=== PATIENT | female | born 1995 | race Caucasian/White ===

== ENCOUNTER 2016-05-21 19:56 | Emergency (ER) | payer OTHER ==
--- NOTE | 2016-05-21 22:12 | UC ---
Throat Pain/Nasal Erlin HPI - HPI Summary HPI Summary: Pt states she has been exposed to mono, by sharing drinks. Denies ST, fever, abd pain at this time. 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 Hx enlarged tonsils, especially her right tonsil. - History of Current Complaint Chief Complaint: UCGeneralIllness Stated Complaint: MONO TEST Time Seen by Provider: 05/21/16 21:40 Hx Obtained From: Patient Hx Last Menstrual Period: 05/11/16 Onset/Duration: Sudden Onset, Lasting Weeks - exposed one week ago, Still Present Severity: Mild Pain Intensity: 0 Pain Scale Used: 0-10 Numeric Cough: None Associated Signs & Symptoms: Negative: Dysphagia, Hoarseness, Nasal Discharge, Fever, Vomiting - Epiglottits Risk Factors Epiglottis Risk Factors: Negative - Allergies/Home Medications Allergies/Adverse Reactions: Allergies Allergy/AdvReac Type Severity Reaction Status Date / Time No Known Allergies Allergy Verified 05/21/16 21:41 Home Medications: Home Medications NK [No Home Medications Reported] 05/21/16 [History Confirmed 05/21/16] PMH/Surg Hx/FS Hx/Imm Hx Previously Healthy: Yes - Surgical History Surgical History: Yes Surgery Procedure, Year, and Place: for scoliosis-has jamie - Family History Known Family History: Positive: Diabetes - great grandmother, maternal - Social History Occupation: Student Alcohol Use: None Substance Use Type: None Smoking Status (MU): Never Smoked Tobacco - Immunization History Most Recent Influenza Vaccination: none Review of Systems Constitutional: Negative Skin: Negative ENT: Negative Respiratory: Negative Cardiovascular: Negative Gastrointestinal: Negative Genitourinary: Negative Musculoskeletal: Negative Neurological: Negative All Other Systems Reviewed And Are Negative: Yes Physical Exam Triage Information Reviewed: Yes Appearance: Well-Appearing, No Pain Distress, Well-Nourished Vital Signs: Initial Vital Signs Temp 98.5 F 05/21/16 21:37 Pulse 71 05/21/16 21:37 Resp 15 05/21/16 21:37 BP 117/75 05/21/16 21:37 Pulse Ox 98 05/21/16 21:37 Vital Signs Reviewed: Yes Eyes: Positive: Conjunctiva Clear ENT: Positive: Hearing grossly normal, TMs normal, Tonsillar swelling. Negative : Tonsillar exudate, Muffled/hoarse voice Neck: Positive: Supple, Nontender, No Lymphadenopathy Respiratory: Positive: Lungs clear, Normal breath sounds, No respiratory distress Cardiovascular: Positive: RRR, No Murmur, Pulses Normal, Brisk Capillary Refill Abdomen Description: Positive: Nontender, No Organomegaly, Soft. Negative: CVA Tenderness (R), CVA Tenderness (L), Distended, Guarding, Hepatomegaly, McBurney' s Point Tenderness, Peritoneal Signs, Pulsatile Mass, Splenomegaly Bowel Sounds: Positive: Present Musculoskeletal: Positive: Strength Intact, ROM Intact Neurological: Positive: Alert, Muscle Tone Normal Psychological Exam: Normal Skin Exam: Normal Throat Pain/Nasal Course/Dx - Differential Dx/Diagnosis Differential Diagnosis/HQI/PQRI: Influenza, Otitis Media, Pharyngitis, Tonsillitis, URI, Other - mono Provider Diagnoses: evaluation for mononucleosis Discharge - Discharge Plan Condition: Stable Disposition: HOME Patient Education Materials: Mononucleosis (ED) Additional Instructions: Follow up with your doctor at home in 2 days as needed. You may call for your mono results in 2 days if you have not heard from us. Return to urgent care if any new or worsening symptoms.
[2016-05-22 10:26] LABS: EBV Response YES
[2016-05-22 10:34] LABS: Hematocrit 42 % (35-47); Hemoglobin 13.9 g/dl (12.0-16.0); Mean Corpuscular HGB Conc 33 g/dl (31-36); Mean Corpuscular Hemoglobin 27 pg (27-31); Mean Corpuscular Volume 83 fL (80-97); Mean Platelet Volume 9 um3 (7.4-10.4); Red Cell Distribution Width 13 % (10.5-15); White Blood Count 7.4 10^3/ul (3.5-10.8)
[2016-05-22 10:59] LABS: Manual Entry Verification GRE0060; Mono Internal Control QC Line Present
[2016-05-23 12:33] LABS: EBV Capsid Ag IgG Ab Positive (Negative); EBV Capsid Ag IgM Ab Negative (Negative)
== END 2016-05-21 22:50 | disposition home or self-care (01) ==
LOC: UCCORT 19:56
DX: Z20.828 Contact with and (suspected) exposure to other viral communicable diseases (principal)
CPT/HCPCS: 36415; 85025; 86308; 86664; 86665; 99201; G0463

== ENCOUNTER 2017-03-11 09:31 | Emergency (ER) | payer OTHER ==
[2017-03-11 11:27] VITALS: BP 125/66
--- NOTE | 2017-03-11 11:42 | UC ---
Respiratory Complaint HPI - HPI Summary HPI Summary: sniffles and cough feels like a she has a cold coming on--- - History of Current Complaint Chief Complaint: UCGeneralIllness Stated Complaint: ST, CRISTIANO. Time Seen by Provider: 03/11/17 11:33 Hx Obtained From: Patient Hx Last Menstrual Period: 02/09/17 ?: No Onset/Duration: Sudden Onset, Lasting Days, Still Present Timing: Constant Severity Initially: Mild Severity Currently: Mild Character: Cough: Nonproductive Aggravating Factors: Nothing Alleviating Factors: Nothing Associated Signs And Symptoms: Positive: URI, Nasal Congestion - Allergies/Home Medications Allergies/Adverse Reactions: Allergies Allergy/AdvReac Type Severity Reaction Status Date / Time No Known Allergies Allergy Verified 03/11/17 11:28 Home Medications: Home Medications Fluticasone Propionate Hfa [Flovent Hfa] 03/11/17 [History] PMH/Surg Hx/FS Hx/Imm Hx Previously Healthy: Yes - Surgical History Surgical History: Yes Surgery Procedure, Year, and Place: for scoliosis-has jamie - Family History Known Family History: Positive: Diabetes - great grandmother, maternal - Social History Occupation: Employed Full-time Lives: With Family Alcohol Use: None Substance Use Type: None Smoking Status (MU): Never Smoked Tobacco - Immunization History Most Recent Influenza Vaccination: not current Review of Systems Constitutional: Negative Skin: Negative Eyes: Negative ENT: Negative, Nasal Discharge Respiratory: Negative Cardiovascular: Negative Gastrointestinal: Negative Genitourinary: Negative Motor: Negative Neurovascular: Negative Musculoskeletal: Negative Neurological: Negative Psychological: Negative Is Patient Immunocompromised?: No All Other Systems Reviewed And Are Negative: Yes Physical Exam Triage Information Reviewed: Yes Appearance: Well-Appearing, No Pain Distress, Well-Nourished Vital Signs: Initial Vital Signs Temp 98.9 F 03/11/17 11:24 Pulse 84 03/11/17 11:24 Resp 20 03/11/17 11:24 BP 125/66 03/11/17 11:24 Pulse Ox 100 03/11/17 11:24 Vital Signs Reviewed: Yes Eye Exam: Normal Eyes: Positive: Conjunctiva Clear ENT Exam: Normal ENT: Positive: Normal ENT inspection, Hearing grossly normal, Pharynx normal, Nasal congestion, Nasal drainage, Uvula midline. Negative: TMs normal, TM bulging, TM dull, TM red, Tonsillar swelling, Tonsillar exudate, Trismus, Muffled voice, Hoarse voice, Dental tenderness, Sinus tenderness Dental Exam: Normal Neck exam: Normal Neck: Positive: Supple, Nontender, No Lymphadenopathy Respiratory Exam: Normal Respiratory: Positive: Chest non-tender, Lungs clear, Normal breath sounds, No respiratory distress, No accessory muscle use Cardiovascular Exam: Normal Cardiovascular: Positive: RRR, No Murmur, Pulses Normal, Brisk Capillary Refill Abdominal Exam: Normal Abdomen Description: Positive: Nontender, No Organomegaly, Soft. Negative: CVA Tenderness (R), CVA Tenderness (L) Bowel Sounds: Positive: Present Musculoskeletal Exam: Normal Musculoskeletal: Positive: Strength Intact, ROM Intact, No Edema Neurological Exam: Normal Neurological: Positive: Alert, Muscle Tone Normal Psychological Exam: Normal Psychological: Positive: Normal Response To Family, Age Appropriate Behavior Skin Exam: Normal Skin: Positive: rashes UC Diagnostic Evaluation - Laboratory O2 Sat by Pulse Oximetry: 100 Diagnostic Studies Comment: influenza A/B (-) Respiratory Course/Dx - Course Course Of Treatment: increase fluids, otc medications for symptom relief, Flonase for nasal congestion and drainage - Differential Dx/Diagnosis Provider Diagnoses: Viral illness, nasal congestion Discharge - Discharge Plan Condition: Stable Disposition: HOME Prescriptions: Fluticasone NASAL SPRAY 50MCG* [Flonase NASAL SPRAY 50MCG*] 2 spray BOTH NARES DAILY #1 btl Patient Education Materials: Viral Syndrome (ED), Cold Symptoms (ED), How to Use Nasal [place] (ED) Referrals: Hiren Jack MD [Primary Care Provider] - If Needed
== END 2017-03-11 12:12 | disposition home or self-care (01) ==
LOC: UCCORT 09:31
DX: B34.9 Viral infection, unspecified (principal); R09.81 Nasal congestion
CPT/HCPCS: 87651; 99212; G0463

== ENCOUNTER 2017-05-30 15:55 | Emergency (ER) | payer OTHER ==
[2017-05-30 16:30] VITALS: BP 126/88
--- NOTE | 2017-05-30 16:38 | UC ---
Respiratory Complaint HPI - HPI Summary HPI Summary: 21 year old female with cough Productive cough w/ green phelgm and wheezing x1 month. SOB w/ activity and w/ coughing fits. Using albuterol and flovent inhaler daily w/ not much relief. Denies fever/chills. Hx asthma. No SOB. No fever. Has been using BARBIE more frequently. Advised by family with her cough to come in. [ End ] - History of Current Complaint Chief Complaint: UCRespiratory Stated Complaint: PERSISTENT COUGH Time Seen by Provider: 05/30/17 16:35 Hx Obtained From: Patient Hx Last Menstrual Period: 05/21/17 Onset/Duration: Gradual Onset Timing: Constant Severity Initially: Mild Severity Currently: Moderate Pain Intensity: 0 Character: Cough: Productive Aggravating Factors: Allergens, Exertion Alleviating Factors: Bronchodilator Associated Signs And Symptoms: Positive: Nasal Congestion - Allergies/Home Medications Allergies/Adverse Reactions: Allergies Allergy/AdvReac Type Severity Reaction Status Date / Time No Known Allergies Allergy Verified 05/30/17 16:24 Home Medications: Home Medications Albuterol HFA INHALER* [Ventolin HFA Inhaler*] 1 puff Q4HR PRN 05/30/17 [ History Confirmed 05/30/17] PMH/Surg Hx/FS Hx/Imm Hx Previously Healthy: Yes Respiratory History: Asthma - Surgical History Surgical History: Yes Surgery Procedure, Year, and Place: for scoliosis-has jamie - Family History Known Family History: Positive: Diabetes - great grandmother, maternal - Social History Occupation: Employed Full-time - TA / local delivery driver Lives: With Family Alcohol Use: Occasionally Substance Use Type: None Smoking Status (MU): Never Smoked Tobacco - Immunization History Most Recent Influenza Vaccination: not current Review of Systems Constitutional: Fatigue ENT: Nasal Discharge Respiratory: Shortness Of Breath, Cough Is Patient Immunocompromised?: No All Other Systems Reviewed And Are Negative: Yes Physical Exam Triage Information Reviewed: Yes Appearance: Well-Appearing, No Pain Distress, Well-Nourished Vital Signs: Initial Vital Signs Temp 97.9 F 05/30/17 16:25 Pulse 70 05/30/17 16:25 Resp 16 05/30/17 16:25 BP 126/88 05/30/17 16:25 Pulse Ox 100 05/30/17 16:25 Vital Signs Reviewed: Yes Eye Exam: Normal ENT Exam: Normal Dental Exam: Normal Neck exam: Normal Neck: Positive: 1 Respiratory Exam: Normal Respiratory: Positive: Chest non-tender, Lungs clear, Normal breath sounds, No respiratory distress Cardiovascular Exam: Normal Abdominal Exam: Normal Musculoskeletal Exam: Normal Neurological Exam: Normal Psychological Exam: Normal Skin Exam: Normal UC Diagnostic Evaluation - Laboratory O2 Sat by Pulse Oximetry: 100 Respiratory Course/Dx - Course Course Of Treatment: No acute concerns. Sx essentially stable and same for weeks. Start singulair at this time and if Sx worsen then start antibiotics. No acute concern for steroids as no wheeze and per patient does not feel that symptomatic and not been on steroids in years,. - Differential Dx/Diagnosis Differential Diagnosis/HQI/PQRI: Asthma, Bronchitis, Lower Resp Infection, Sinusitis Provider Diagnoses: Asthmatic bronchitis Discharge - Sign-Out/Discharge Documenting (check all that apply): Discharge - Discharge Plan Condition: Good Disposition: HOME Prescriptions: Amoxicillin/Clavulanate TAB* [Augmentin TAB 875*] 875 mg PO BID 10 Days #20 tab Benzonatate CAP* [Tessalon 100 MG CAP*] 100 mg PO TID PRN #20 cap PRN Reason: Cough Montelukast Sodium TAB* [Singulair TAB*] 10 mg PO BEDTIME #30 tab Patient Education Materials: Acute Bronchitis (ED) Referrals: Hiren Jack MD [Primary Care Provider] - 4 Days Additional Instructions: As we discussed try supportive treatment at this time for a few days and if your symptoms worsen, you develop fever or concern for worsening cough then start the antibiotics. - Billing Disposition and Condition Condition: GOOD Disposition: HOME
== END 2017-05-30 17:02 | disposition home or self-care (01) ==
LOC: UCCORT 15:55
DX: J45.909 Unspecified asthma, uncomplicated (principal)
CPT/HCPCS: 99212; G0463

== ENCOUNTER 2017-06-29 07:22 | Emergency (ER) | payer OTHER ==
[2017-06-29 07:47] VITALS: BP 114/78
--- NOTE | 2017-06-29 08:10 | UC ---
Eye Complaint HPI - HPI Summary HPI Summary: Per lotteries agent "Pt woke yesterday with R eye red, puritic and crusted shut. Pt states this is her 3rd occurance of conjunctivitis. She admits to using the same make up products since the 1st occurance but states she will discard it now. " -here w. her fiance Isaak. She also c/o a lot of nasal congestion mucous production. no sinus tenderess. has had a cold recently. 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 -she would like abx gtts. -she knows she needs to change her make up. no contacts. -no trauma, no pain. no signfiicant visual change other than blurriness and irritation. - History of Current Complaint Chief Complaint: UCEye Stated Complaint: EYE COMPLAINT Time Seen by Provider: 06/29/17 07:54 Hx Last Menstrual Period: 06/20/17 Pain Intensity: 0 - Allergies/Home Medications Allergies/Adverse Reactions: Allergies Allergy/AdvReac Type Severity Reaction Status Date / Time No Known Allergies Allergy Verified 06/29/17 07:46 PMH/Surg Hx/FS Hx/Imm Hx Previously Healthy: Yes - Surgical History Surgical History: Yes Surgery Procedure, Year, and Place: for scoliosis-has jamie - Family History Known Family History: Positive: Diabetes - great grandmother, maternal - Social History Alcohol Use: Occasionally Substance Use Type: None Smoking Status (MU): Never Smoked Tobacco - Immunization History Most Recent Influenza Vaccination: not current Review of Systems Constitutional: Negative Skin: Negative Eyes: Blurred Vision, Drainage, Eye Redness ENT: Ear Ache, Nasal Discharge, Sinus Congestion Respiratory: Negative Cardiovascular: Negative Gastrointestinal: Negative Genitourinary: Negative Motor: Negative Neurovascular: Negative Musculoskeletal: Negative Neurological: Negative Psychological: Negative Is Patient Immunocompromised?: No All Other Systems Reviewed And Are Negative: Yes Physical Exam Triage Information Reviewed: Yes Appearance: Well-Appearing, No Pain Distress, Well-Nourished - very pleasant Vital Signs: Initial Vital Signs Temp 97.7 F 06/29/17 07:41 Pulse 76 06/29/17 07:41 Resp 18 06/29/17 07:41 BP 114/78 06/29/17 07:41 Pulse Ox 97 06/29/17 07:41 Vital Signs Reviewed: Yes Eyes: Positive: Conjunctiva Inflamed, Discharge - crusted d./c rt upper lid. EOMI, PERRL, no FB. ENT: Positive: Pharyngeal erythema - +PND but no signif erytehma. lg tonsil, TMs normal - + cerumen dry, small amt. Negative: Tonsillar swelling, Tonsillar exudate Dental Exam: Normal Neck exam: Normal Neck: Positive: Supple, Nontender, No Lymphadenopathy Respiratory Exam: Normal Respiratory: Positive: Lungs clear, Normal breath sounds, No respiratory distress, No accessory muscle use Cardiovascular Exam: Normal Cardiovascular: Positive: RRR Abdomen Description: Positive: Nontender, Soft Musculoskeletal Exam: Normal Neurological Exam: Normal Psychological Exam: Normal Skin Exam: Normal Eye Complaint Course/Dx - Differential Dx/Diagnosis Differential Diagnosis/HQI/PQRI: Conjunctivitis, Corneal Abrasion, Foreign Body Provider Diagnoses: Rt conjunctivitis Discharge - Sign-Out/Discharge Documenting (check all that apply): Discharge/Admit/Transfer - Discharge Plan Condition: Stable Disposition: HOME Prescriptions: Gentamicin 0.3% OPHTH.SOLN* 1 drop RIGHT EYE Q4H 5 Days #1 btl Patient Education Materials: Conjunctivitis (ED) Referrals: Hiren Jack MD [Primary Care Provider] - Additional Instructions: -You can use cold compresses to your affected eye. Be very careful to wash your hands well adn avoid touching your eye. No make up until symptoms resolve and throw away any contaminated make up, wash brushes well. -Flonase nasal spray use after daily netti pot will be helpful to help your congestion and mucous production. You can also use an OTC anti-histamine such as zyrtec or it's generic version called cetirizine. ENT info has been provided as well fro further evaluation. - Billing Disposition and Condition Condition: STABLE Disposition: HOME
== END 2017-06-29 08:27 | disposition home or self-care (01) ==
LOC: UCCORT 07:22
DX: H10.9 Unspecified conjunctivitis (principal)
CPT/HCPCS: 99212; G0463

== ENCOUNTER 2017-10-02 07:01 | Emergency (ER) | payer OTHER ==
[2017-10-02 07:16] VITALS: BP 129/73
[2017-10-02] MEDS ORDERED: Albuterol/Ipratropium NEB.SOL* Albuterol 2.5 MG/Ipratropium 0.5 MG 3 ML INH ONE (07:32)
--- NOTE | 2017-10-02 07:34 | UC ---
Respiratory Complaint HPI - HPI Summary HPI Summary: She presents with 4 days progressive cough and wheeze. Patient with also with a coarse cough. Cough productive of yellow Patient states she was diagnosed with asthma. Patient never been hospitalized. Patient has 2 inhalers, Flovent and albuterol. Patient doesn't take these medications can make her cough worse. Patient is not taking with Medications. Patient denies any fevers or chills. Patient denies sinus pressure or sore throat. Patient reports posttussive gagging x2. Patient does have postnasal drip. No ear pain. Patient has never been hospitalized. Never been intubated. Patient does not remember her last prednisone. Patient states she is not . Patient denies sick contacts. Patient's medications reviewed this visit - History of Current Complaint Chief Complaint: UCRespiratory Stated Complaint: COUGH Time Seen by Provider: 10/02/17 07:25 Hx Obtained From: Patient Hx Last Menstrual Period: 08/27/17 ?: No Onset/Duration: Gradual Onset Severity Initially: Moderate Severity Currently: Moderate Pain Intensity: 5 Pain Scale Used: 0-10 Numeric Character: Cough: Productive - Allergies/Home Medications Allergies/Adverse Reactions: Allergies Allergy/AdvReac Type Severity Reaction Status Date / Time No Known Allergies Allergy Verified 06/29/17 07:46 Home Medications: Home Medications Albuterol HFA INHALER* [Ventolin HFA Inhaler*] 1 puff INH Q4H 10/02/17 [History Confirmed 10/02/17] PMH/Surg Hx/FS Hx/Imm Hx Previously Healthy: Yes - Surgical History Surgical History: Yes Surgery Procedure, Year, and Place: for scoliosis-has jamie - Family History Known Family History: Positive: Diabetes - great grandmother, maternal - Social History Lives: With Family Alcohol Use: Occasionally Substance Use Type: None Smoking Status (MU): Never Smoked Tobacco - Immunization History Most Recent Influenza Vaccination: not current Review of Systems Constitutional: Negative Respiratory: Shortness Of Breath, Cough All Other Systems Reviewed And Are Negative: Yes Physical Exam - Summary Physical Exam Summary: Vital Signs Reviewed: Yes A+Ox3, no distress Eyes: Conjunctiva Clear, ALE. EOM intact and full ENT: Hearing grossly normal TM x 2 clear, mmoist, uvula midline, no exudate, no erythema Neck: Positive: Supple Respiratory: Positive: No respiratory distress, No accessory muscle use + scattered wheezes bilaterally throughout. Coarse cough. No accessory muscles Cardiovascular: RRR nl s1, s2 no m/r CBT <2 sec abd soft + BS nt/nd no guarding, no distension Musculoskeletal Exam: FRIEDMAN x 4 without difficulty Strength Intact, ROM Intact Neurological: Positive: Alert, + sensation throughout Psychological: Positive: Normal Response To Family Skin: Positive: no rash, no ecchymosis Triage Information Reviewed: Yes Vital Signs: Initial Vital Signs Temp 99 F 10/02/17 07:10 Pulse 101 10/02/17 07:10 Resp 19 10/02/17 07:10 BP 129/73 10/02/17 07:10 Pulse Ox 96 10/02/17 07:10 Diagnostic Evaluation - Laboratory O2 Sat by Pulse Oximetry: 96 Re-Evaluation - Re-Evaluation First Eval Change: Improved - Patient slightly tremulous after nebulizer. Patient states her breathing feels better. Patient without wheezing and good air flow throughout all lung [place]. Discussed with patient length. Will prescribe prednisone 5 days. Patient instructed to hold her Flovent until after prednisone and then resume. Patient instructed to use albuterol MDI 2 puffs every 4 hours today and tomorrow and then as needed. We'll prescribe an AeroChamber spacer does not have one. We'll put patient on a course of Zithromax. Recommend patient take an allergy medication with decongestant. Strict return precautions. Patient advised to follow up with PCP for recheck early next week. Patient states comfortable in agreement with plan. Discussed with patient secretion precautions and recommend she change her toothbrush in pillowcase 48 hours. Patient comfortable with plan. Patient declined work note Respiratory Course/Dx - Course Course Of Treatment: Patient presents with 4 days progressive cough and wheeze. Patient with productive sputum is yellow. Patient with fatigue. Patient with a history of asthma. Patient has not been using her inhalers. Patient denies sick contacts. No fevers. Patient has had some posttussive emesis and gagging. On exam vitals reviewed. Patient with scattered wheezes throughout and coarse cough. Will give nebulizer and close reassessment - Differential Dx/Diagnosis Provider Diagnoses: asthma. acute bronchitis Discharge - Sign-Out/Discharge Documenting (check all that apply): Patient Departure, Post-Discharge Follow Up - Discharge Plan Condition: Stable Disposition: HOME Prescriptions: Azithromycin TAB* [Zithromax TAB (Z-TONYA) 250 mg #6 tabs] 2 tab PO .TODAY, THEN 1 DAILY #1 tonya Inhaler, Assist Devices [Aerochamber Mv] 1 each MC Q4HR #1 spacer predniSONE TAB* [Deltasone TAB*] 50 mg PO DAILY #5 tab Patient Education Materials: Asthma (ED), Acute Bronchitis (ED) Referrals: Hiren Jack MD [Primary Care Provider] - Additional Instructions: - Take antibiotics exactly as prescribed until gone -Use your albuterol puffer - 2 puffs ever 4 hours for the next 2 days - then as needed - use a spacer as prescribed to assist the medicine getting into your lungs - Take prednisone daily as prescribed x 5 days. After this, resume your flovent - take antibiotics as prescribed until gone -Stay well hydrated - avoid excess caffeine and all alcohol - eat regular, healthy meals -These infections are spread by oral secretions. Do not share eating or drinking utensils. Frequent hand washing is important. Clean items that may get your secretions on them such as cell phones, ipads, computer mouse, television remotes. Once you have been on antbiotics for 2 days, change your pillowcase and your toothbrush - It is recommended you take an allergy medication with a decongestant (Claritin -D, Rebecca-D, Zyrtec-D) -Contact your doctor to arrange a follow-up appointment this week. Call your doctor, return here or go to the emergency department with any questions or concerns - Billing Disposition and Condition Condition: STABLE Disposition: Home
== END 2017-10-02 08:07 | disposition home or self-care (01) ==
LOC: UCCORT 07:01
DX: J45.909 Unspecified asthma, uncomplicated (principal); J20.9 Acute bronchitis, unspecified
CPT/HCPCS: 99212; A9270-GY; G0463